=== PATIENT | male | born 1985 | race Caucasian/White ===

== ENCOUNTER 2019-05-16 00:37 | Emergency (ER) | payer MEDICAID, OTHER ==
[~2019-05-16] VITALS: Ht 185.4 cm; Wt 81.6 kg
[2019-05-16] MEDS ORDERED: LORAZEPAM INJ 2 MG/ML VIAL ONE (00:58)
[2019-05-16] MEDS ORDERED: LORAZEPAM INJ 2 MG/ML VIAL IM/IV ONE (01:00)
--- NOTE | 2019-05-16 01:18 | NUR ---
BIB SELF C/O ANXIETY X2 HOURS. "IM HAVING MID LIEF CRISIS" APPEARS UNEASY AND UNCOMFORTABLE, ORDERES RECEIVED AND CARRIED OUT
[2019-05-16 01:22] VITALS: BP 136/102
--- NOTE | 2019-05-16 01:22 | NUR ---
Patient discharged to home in stable condition. Written and verbal after care instructions given. Patient verbalizes understanding of instruction.
== END 2019-05-16 01:22 | disposition home or self-care (01) ==
LOC: ER 00:39
DX: F41.9 Anxiety disorder, unspecified (principal); F17.200 Nicotine dependence, unspecified, uncomplicated
CPT/HCPCS: 96372; 99284; J2060